=== PATIENT | female | born 1980 | race Hispanic/Latino ===

== ENCOUNTER → 2017-06-05 12:20 | Outpatient (CLI) | payer BC, SELFPAY ==
[2017-06-09 15:14] LABS: HPV HC, High Risk Negative (Negative)
== END ==
PROVIDERS: Visit Provider Obstetrics & Gynecology
DX: Z12.4 Encounter for screening for malignant neoplasm of cervix (principal)
CPT/HCPCS: 87624; 88175; G0145

== ENCOUNTER → 2018-06-09 | Outpatient (CLI) | payer BC, SELFPAY ==
--- NOTE | 2018-06-09 07:44 | BI_ITS ---
MAMMOGRAPHY - BILATERAL SCREENING REASON FOR EXAM: Female, 37 years old. Routine annual screening examination. PERTINENT HISTORY: Non-contributory. TECHNIQUE: Digital bilateral breast julien (3D mammographic acquisition) in the CC and MLO projections. 2-D mediolateral oblique (MLO) and craniocaudad (CC) views of both breasts were obtained. CAD: Full Field Digital Mammography with Computer Added Detection was performed. COMPARISON: None. Baseline examination. FINDINGS: Breast Composition: The breasts are extremely dense, which lowers the sensitivity of mammography. There are no dominant masses or suspicious calcifications. No other significant abnormalities are identified. BI/SCREENING MAMM (CAD), BILAT IMPRESSION: Negative screening mammogram. Yearly followup mammogram recommended. (A) ASSESSMENT CATEGORY: BIRADS Category 1: Negative. A letter regarding these results will be sent to the patient by the facility within 30 days. Approximately 10% of breast cancers are not detected by mammography. A normal mammogram should not delay biopsy of a clinically suspicious abnormality. [id number] Electronically Signed: Ethan Waldrop, at 9:06 EDT , Service support ,
== END | disposition home or self-care (01) ==
LOC: OPBI 07:41
PROVIDERS: Family Provider Internal Medicine; PCP Internal Medicine; Referring Provider Obstetrics & Gynecology; Visit Provider Obstetrics & Gynecology
DX: Z12.31 Encounter for screening mammogram for malignant neoplasm of breast (principal)
CPT/HCPCS: 77063; 77067

== ENCOUNTER → 2020-07-18 12:12 | Outpatient (CLI) | payer OTHER, SELFPAY ==
--- NOTE | 2020-07-18 12:14 | BI_ITS ---
MAMMOGRAPHY - BILATERAL SCREENING REASON FOR EXAM: Female, 39 years old. Routine annual screening examination. PERTINENT HISTORY: Aunts with breast cancer. TECHNIQUE: Digital bilateral breast hood (3D mammographic acquisition) in the CC and MLO projections. 2-D mediolateral oblique (MLO) and craniocaudad (CC) views of both breasts were obtained. CAD: Full Field Digital Mammography with Computer Added Detection was performed. COMPARISON: Comparison is made with prior study dated 06/09/2018. FINDINGS: Breast Composition: The breasts are extremely dense, which lowers the sensitivity of mammography. There are no dominant masses or suspicious calcifications. No other significant abnormalities are identified. There has been no significant change since the prior study. BI/SCRN MAMM (CAD)W/HOOD BILAT IMPRESSION: Stable bilateral screening mammogram. Yearly follow-up mammogram recommended. (A) ASSESSMENT CATEGORY: BIRADS Category 1: Negative. A letter regarding these results will be sent to the patient by the facility within 30 days. Approximately 10% of breast cancers are not detected by mammography. A normal mammogram should not delay biopsy of a clinically suspicious abnormality. [id number] Electronically Signed: Ethan Waldrop MD at 13:49 EDT , Service support ,
== END ==
PROVIDERS: PCP Internal Medicine; Referring Provider Student in an Organized Health Care Education/Training Program; Visit Provider Student in an Organized Health Care Education/Training Program
DX: Z12.31 Encounter for screening mammogram for malignant neoplasm of breast (principal)
CPT/HCPCS: 77063; 77067

== ENCOUNTER → 2020-07-18 16:30 | Outpatient (CLI) | payer OTHER, SELFPAY ==
[2020-07-22 15:04] LABS: HPV APTIMA, High Risk Negative (Negative)
== END ==
PROVIDERS: PCP Internal Medicine; Visit Provider Student in an Organized Health Care Education/Training Program
DX: Z12.4 Encounter for screening for malignant neoplasm of cervix (principal)
CPT/HCPCS: 87624; 88175; G0145

== ENCOUNTER → 2021-10-09 | Outpatient (CLI) | payer BC, SELFPAY ==
--- NOTE | 2021-10-09 10:33 | BI_ITS ---
MAMMOGRAPHY - BILATERAL SCREENING 3-D TOMOSYNTHESIS REASON FOR EXAM: Female, 41 years old. SCREENING PERTINENT HISTORY: No significant family history. TECHNIQUE: 2-D mammograms and 3-D Tomosynthesis of the breast (s) were performed. CAD was performed. COMPARISON: 07/18/2020 FINDINGS: The breast composition is Extermely dense tissue. Scattered benign calcifications are seen. No dense spiculated masses or suspicious microcalcifications are identified. No architectural distortion is identified. There is no skin thickening or retraction. There has been no significant change since the prior study. BI/SCRN MAMM (CAD)W/HOOD BILAT IMPRESSION: No mammographic signs of malignancy. Routine yearly mammograms recommended. ASSESSMENT CATEGORY: BIRADS Category 1: Negative. A letter regarding these results will be sent to the patient by the facility within 30 days. FOLLOW UP RECOMMENDATION: Yearly follow up mammogram recommended. (A) Approximately 10% of breast cancers are not detected by mammography. A normal mammogram should not delay biopsy of a clinically suspicious abnormality. Electronically Signed: Ab Arnold MD at 16:32 EDT ,
[2021-10-14 15:21] LABS: HPV APTIMA, High Risk Negative (Negative)
== END | disposition home or self-care (01) ==
LOC: OPBI 10:31
PROVIDERS: PCP Internal Medicine; Referring Provider Student in an Organized Health Care Education/Training Program; Visit Provider Student in an Organized Health Care Education/Training Program
DX: Z12.31 Encounter for screening mammogram for malignant neoplasm of breast (principal); Z12.4 Encounter for screening for malignant neoplasm of cervix
CPT/HCPCS: 77063; 77067; 87624; 88175; G0145

== ENCOUNTER → 2021-12-03 | Outpatient (CLI) | payer BC, SELFPAY ==
--- NOTE | 2021-12-03 10:04 | US_ITS ---
STUDY: ULTRASOUND BREAST - LEFT REASON FOR EXAM: Female, 41 years old. Left axillary pain. TECHNIQUE: Axial and longitudinal images of the LEFT breast were performed with a high resolution ultrasound transducer. # OF IMAGES: 65 COMPARISON: None. FINDINGS: LEFT Breast: The lateral half of the left breast was examined with ultrasound. There is dense fibroglandular tissue. No sonographic abnormality is seen. US/Breast Limited Unilateral IMPRESSION: No sonographic abnormality is seen. ASSESSMENT CATEGORY: BIRADS Category 1: Negative. A letter regarding these results will be sent to the patient by the facility within 30 days. Electronically Signed: Ethan Waldrop MD at 15:04 EDT ,
== END | disposition home or self-care (01) ==
LOC: OPBI 10:01
PROVIDERS: PCP Internal Medicine; Visit Provider Student in an Organized Health Care Education/Training Program
DX: N64.4 Mastodynia (principal)
CPT/HCPCS: 76642